=== PATIENT | male | born 1980 | race Caucasian/White ===

== ENCOUNTER 2018-09-26 13:36 | Inpatient (IN) ==
--- NOTE | 2018-09-26 08:40 | Discharge Summary ---
Orders not resulted at time of discharge: Pending orders 09/26/18 01:00 XR hip complete RT [XR] Routine Hemoglobin and Hematocrit [HEME] Routine Date of Encounter: 09/27/18 Time of Encounter: 13:00 - Discharge Diagnosis (1) Avascular necrosis of bone of right hip Priority: Primary Status: Chronic (2) Osteoarthritis of right hip Priority: Primary Status: Chronic Qualifiers: Osteoarthritis type: unspecified Qualified Code(s): M16.11 - Unilateral primary osteoarthritis, right hip (3) Status post total hip replacement, right Priority: Primary Status: Acute (4) Tobacco dependence Priority: Secondary Status: Chronic - Hospital Course Hospital course: Mr. Lou is a 38 year old male POD#1 s/p Right Total Hip Replacement robotic- assisted [Right hip avascular necrosis with arthritis] 09/26/18 - Patient seen at bedside. Patient's relative at bedside. A&Ox3 Dressing and incision c/d/i No calf tenderness, erythema, or warmth. Neurovascularly intact b/l LE. Labwork, vitals, and medications reviewed. Pain control: Adequate Participating in therapy. All questions and concerns addressed. Educated on use of incentive spirometer, ambulation, and hydration. Patient educated on post-operative restrictions and care. Addressed: see above. Patient course and disposition discussed with Dr. Cao D/C plan: Home with home health today. Outpatient follow up arranged. - Time Spent with Patient Total time spent providing and/or coordinating discharge services: - Discharge Medications Prescriptions: New Aspirin Enteric Coated [Aspirin EC] 325 mg PO BID 10 Days #20 tablet. Docusate Sodium [Colace] 100 mg PO BID 5 Days #10 capsule OxyCODONE Immed Rel [Roxicodone 5 MG] 5 mg PO Q6HR PRN 5 Days #20 tablet PRN Reason: Severe Pain Cyclobenzaprine HCl 10 mg PO TID 7 Days #21 tablet Naproxen [Naprosyn] 500 mg PO BIDWM 14 Days #28 tablet Gabapentin [Neurontin] 300 mg PO TID 14 Days #42 capsule Continued Acetaminophen [Tylenol] 1,000 mg PO Q6HR PRN PRN Reason: Mild To Moderate Pain Home Medications: Acetaminophen [Tylenol] 1,000 mg PO Q6HR PRN 09/26/18 [History] Aspirin Enteric Coated [Aspirin EC] 325 mg PO BID 10 Days #20 tablet. 09/26/18 [Rx] Docusate Sodium [Colace] 100 mg PO BID 5 Days #10 capsule 09/26/18 [Rx] OxyCODONE Immed Rel [Roxicodone 5 MG] 5 mg PO Q6HR PRN 5 Days #20 tablet 09/26/18 [Rx] Cyclobenzaprine HCl 10 mg PO TID 7 Days #21 tablet 09/27/18 [Rx] Gabapentin [Neurontin] 300 mg PO TID 14 Days #42 capsule 09/27/18 [Rx] Naproxen [Naprosyn] 500 mg PO BIDWM 14 Days #28 tablet 09/27/18 [Rx] Allergies/Adverse Reactions: Allergy/AdvReac Type Severity Reaction Status Date / Time No Known Allergies Allergy Verified 09/26/18 13:57 Date of admission: 09/26/18 Primary care physician: Jonathan Kaba DO Discharging clinician: Munir Cao Anticipated date of discharge: 09/27/18 - VTE Documentation of Mechanical Device: Venous foot pump, device - Patient Status Disposition: Home Health Service Condition: Good Functional capacity at discharge: uses cane/walker Overall status at discharge: patient is progressing back to baseline - Discharge Instructions Follow Up With: Jonathan Kaba DO [Primary Care Provider] - - Diet and Activity Activity: as per physical therapy Diet: advance to your usual diet
--- NOTE | 2018-09-26 12:07 | Anesthesia Evaluation PreOp ---
Date of Encounter: 09/26/18 Time of Encounter: 14:32 - Past History Planned Operation: Right Total Hip Arthroplasty Cardiac History: Denies any Significant Hx Pulmonary History: Smoker (19 years), Snore ENTRY PROCESSOR History: Denies Any Significant HX Other Medical History: GERD Anesthesia History: No Prior Anesthetic Complications, Past Anesthesia Alcohol Use: occasionally Drug use: none Medications and Allergies Acetaminophen [Tylenol] 1,000 mg PO Q6HR PRN 09/26/18 [History] Aspirin Enteric Coated [Aspirin EC] 325 mg PO BID 10 Days #20 tablet. 09/26/18 [Rx] Docusate Sodium [Colace] 100 mg PO BID 5 Days #10 capsule 09/26/18 [Rx] OxyCODONE Immed Rel [Roxicodone 5 MG] 5 mg PO Q6HR PRN 5 Days #20 tablet 09/26/18 [Rx] Allergy/AdvReac Type Severity Reaction Status Date / Time No Known Allergies Allergy Verified 09/26/18 13:57 - Meds/Allergy Pre-op Review Medications Reviewed: Yes Allergies Reviewed: Yes Beta Blockers on Current Med List: No Anesthesia Results - Labs Laboratory Tests 09/06/18 09/06/18 09/06/18 09:37 09:37 09:37 WBC 11.6 H Hgb 13.2 Hct 40.2 Plt Count 417 H PT 11.2 INR 1.0 APTT 30.8 Sodium 136 Potassium 3.9 BUN 10 Creatinine 0.68 L - Imaging EKG: report reviewed (09/09/2018 SINUS RHYTHM WITH SINUS ARRHYTHMIA) Anesthesia Exam O2 Sat Height 1.75 m Height 1.75 m Weight 90.265 kg Weight 90.265 kg O2 Sat by Pulse Oximetry 95 O2 Sat by Pulse Oximetry 95 Vital Signs Temp Pulse Resp BP Pulse Ox 99.0 F 96 18 120/75 95 09/26/18 13:46 09/26/18 13:46 09/26/18 13:46 09/26/18 13:46 09/26/18 13:46 Height: 5'9'' Weight: 199 lbs NPO (# of Hours): 8 Pain Scale: 0 Pain Scale Used: Numeric (1 - 10) - HEENT Pupil (Motor): EOMI Mallampati: III Teeth: Normal Oral Opening: Greater than 3 - ENTRY PROCESSOR LOC: Oriented ENTRY PROCESSOR Motor: Normal RUE, Normal LUE, Normal RLE, Normal LLE, Normal Face ENTRY PROCESSOR Sensory: Normal: RUE, LUE, RLE, LLE, Face - Cardiac Rhythm: Regular Murmur: None - Pulmonary Breath Sounds: bilateral Clear Respiratory Effort: Symmetrical Anesthesia Assess/Plan ASA Score: 2 Level of consciousness: Cooperative, Oriented, Tranquil Anesthetic Plan: MAC, Spinal Monitoring Plan: Standard Monitors Recovery Plan: PACU
[2018-09-26] MEDS ORDERED: Albuterol 2.5 MG/3 ML NEBULIZER IH ONE (13:53)
[2018-09-26] MEDS ORDERED: CeFAZolin Syr 2,000MG/20 ML 2,000 MG/20 ML SYRINGE IVPB ONE (13:53)
[2018-09-26] MEDS ORDERED: *HR* FentaNYL (PF) 100 MCG/2 ML VIAL ONE (13:55)
[2018-09-26] MEDS ORDERED: *HR* Midazolam HCl 2 MG/2 ML VIAL ONE (13:55)
[2018-09-26] MEDS ORDERED: Propofol 500 MG/50 ML INFUS..BTL ONE ×2 (13:56→15:54)
--- NOTE | 2018-09-26 13:57 | History & Physical Report ---
Date of Encounter: 09/26/18 Time of Encounter: 13:57 24 Hour HP Update - Instructions Instructions: If the History and Physical is less than 30 days old and was completed prior to A.M. admission and or procedure and has NOT been updated on calendar day of procedure please complete this update prior to performing procedure. - Update Patient reports changes in Medical Condition: No Changes in examination, assessment, or condition: No Changes in Medication: No Preop tests/diagnostics Reviewed: Yes Surgery Remains Indicated: Yes Consent for Planned Operative Procedure(s) Verified: Yes - Pre-Operative Checklist Preoperative Checklist Indicated: No Prophylactic Antibiotic Ordered: Yes Is VTE Prophylaxis Indicated?: Yes
[2018-09-26] MEDS ORDERED: Ringers Solution, Lactated 1,000 ML IVC SCH ×2 (14:00→17:57)
[2018-09-26] MEDS ORDERED: Gabapentin 300 MG CAPSULE PO ONE (14:34)
[2018-09-26] MEDS ORDERED: Celecoxib 200 MG CAPSULE PO ONE ×2 (14:34→14:42)
[2018-09-26] MEDS ORDERED: Ondansetron 4 MG/2 ML VIAL IVP ONE (14:35)
[2018-09-26] MEDS ORDERED: *HR* Promethazine 25 MG/ML VIAL IVP PRN ×2 (14:35→17:57)
[2018-09-26] MEDS ORDERED: *HR* OxyCODONE ER (12 HR) 10 MG TABLET PO ONE ×2 (14:35→14:42)
[2018-09-26] MEDS ORDERED: Lidocaine -MPF 1% 5 ML AMPUL ONE (14:39)
[2018-09-26] MEDS ORDERED: Gabapentin 300 MG CAPSULE ONE (14:42)
[2018-09-26] MEDS ORDERED: Ethanol\\Acetic Acid\\Na Ace\\Ben 1,000 ML IRRIG.SOLN IR ONE (14:58)
[2018-09-26] MEDS ORDERED: Tranexamic Acid 1,000 MG/10 ML VIAL ONE (15:08)
--- NOTE | 2018-09-26 15:45 | Anesthesia Procedures ---
Date of Encounter: 09/26/18 Time of Encounter: 14:45 Procedures: Anesthesia - Epidural/Spinal Consent Obtained: Yes Supplemental Oxygen: Nasal Cannula Supplemental Oxygen Rate (L/min): 3 Sedation: Versed (mg): 2 Sedation: Fentanyl (mcg): 100 Site Prep: 0.5% Chlorhexidine/Alcohol Patient position: left lateral decubitus Local Anesthetic: Lidocaine 1% Interspace Used: L3-L4 Blood: No CSF: Yes Paresthesia: No Spinal Needle Gauge: 25 Spinal Dose: 2.5ml 0,5% marcaine
--- NOTE | 2018-09-26 16:22 | Orthopedic Operative Note ---
Date of procedure: 09/26/18 Pre-op diagnosis: Right hip avascular necrosis with arthritis Post-op diagnosis: same Procedure: Procedure: Right Total Hip Replacment robotic-assisted Estimated blood loss: 200 cc Hardware: Metal and polyethylene replacement. Prachi DM Cup: 56 cup Femoral 6 anteverted Anato size stem Head: 0 head with Araceli Procedural Notes: Grade 4 arthritic changes femoral head acetabular socket, procedure performed with robotic assistance. Leg length difference 0 as measured by preoperative CT scan. Operative procedure: The patient was brought to the operating room and placed on the operating room table. After general anesthesia was administered the patient was placed in the lateral decubitus position with the operative leg up. All pressure points were padded appropriately and the head was stabilized in the neutral position. The operative extremity was prepped and draped in the sterile surgical fashion patient received IV antibiotic prior to skin incision. 3 Steinmann pins were placed in the iliac crest 3 cm proximal to the anterior superior iliac spine this was for the robotic-assisted sensor. This was done through a small 2 cm incision. A standard posterior approach is made to the operative hip, the incision was made through the skin and subcutaneous tissue hemostasis was obtained with Bovie cautery. Using careful sharp dissection the fascia was identified and incised exposing the external rotators. The greater trochanter was marked, and length was measured at this time utilizing robotic assistance. The external rotators were released off the greater trochanter and tagged with #2 FiberWire suture. The capsule was T'd open and the hip was brought into internal rotation. Patient noted to have grade 4 arthritic changes femoral head. The femoral neck cut was made at the appropriate level [id number] mm proximal to the lesser trochanter aced on preoperative templating. An anterior capsulotomy was performed for the anterior retractor. Soft tissues removed from the acetabulum. Patient noted to have grade 4 arthritic changes acetabulum. The acetabulum reference point was confirmed. The acetabulum was then mapped with robotic assistance. Based on the preoperative plan the acetabulum was reamed in one step with a 56 reamer. The 56 acetabulum was impacted with robotic assistance and 40 degrees of abduction and 25 degrees of anteversion. The hip was brought back in to internal rotation and prepared with the icebox man followed by the canal finder followed by the reaming process to a size 13 broaching process in 20 degrees anteversion. It was broached up to the appropriate size 6 Trial reduction revealed leg lengths close to normal. The femoral implant was impacted in place in 20 degrees of anteversion. Trial reduction found the hip to be stable with 0 head and Araceli. The trials were removed and the real implants were impacted in place. The hip was reduced, patient had robotic confirmed leg length of 10 mm longer than the contralateral side. The hip had excellent stability with forward flexion to 90 degrees adduction of 30 degrees and internal rotation of 60 degrees. The hip had no shuck. The hip sat with an antibacterial solution. It was irrigated out with 2 L of pulse irrigation. The Steinmann pins were removed. The hip was closed by the PA. The deep tissue was irrigated and closed deep with #1 PDS suture superficially with 0 PDS suture and skin was closed with Dermabond and zip tie. The patient was placed in a sterile dressing and abduction pillow. The patient was extubated and transferred to the recovery room in stable condition. Anesthesia: spinal Surgeon: Munir Cao Was there an conventions assistant present: No Estimated blood loss (cc): 200 Condition: stable Disposition: PACU
[2018-09-26] MEDS ORDERED: *HR* Propofol 200 MG/20 ML VIAL IVP ONE (16:35)
[2018-09-26] MEDS: *HR* HYDROmorphone (PF) 1 MG/ML SYRINGE IVP PRN ×2 (17:00→17:06)
[2018-09-26] MEDS ORDERED: *HR* OxyCODONE Immed Rel 5 MG TABLET PO ONE (17:34)
[2018-09-26 17:39] LABS: Hematocrit 38.3 % (37.5-50.1); Hemoglobin 12.4 g/dL (12.9-16.9)
[2018-09-26] MEDS ORDERED: Sennosides 8.6 MG TABLET PO PRN (17:57)
[2018-09-26] MEDS ORDERED: Ondansetron 4 MG/2 ML VIAL IVP PRN (17:57)
[2018-09-26] MEDS ORDERED: Temazepam 15 MG CAPSULE PO PRN (17:57)
[2018-09-26] MEDS ORDERED: Naloxone 0.4 MG/ML INJ IVP PRN (17:57)
[2018-09-26] MEDS ORDERED: MOM Conc 10 ML UD.LIQ PO PRN (17:57)
[2018-09-26] MEDS ORDERED: traMADol 50 MG TABLET PO PRN (17:57)
[2018-09-26] MEDS ORDERED: *HR* Enoxaparin 30 MG/0.3 ML SYRINGE SQ SCH (18:00)
--- NOTE | 2018-09-26 18:22 | Anesthesia Evaluation Post Op ---
Date of Encounter: 09/26/18 Time of Encounter: 17:54 - Vital Signs Vital Signs: Vital Signs/O2 Sat, Most Current Temp Pulse Resp BP Pulse Ox 98.0 F 79 16 124/75 96 09/26/18 18:10 09/26/18 18:10 09/26/18 18:10 09/26/18 18:10 09/26/18 18:10 - Lungs Lungs: Clear Ascult./Percussion - Airway Airway: Non-obstructed - Cardiovascular Regular Rate - Mental Status Mental Status: Alert & Oriented, Answers Appropriately - Pain Pain Scale used: Numeric (1 - 10) (tolerable) - Nausea Vomiting Nausea Vomiting: Not Present - Hydration Hydration: Ice chips - Discharge PostOp Status: Transfer Patient to floor
[2018-09-26] MEDS: Gabapentin 300 MG CAPSULE PO SCH ×2 (20:19→20:24)
[2018-09-26] MEDS: *HR* OxyCODONE Immed Rel 5 MG TABLET PO PRN (20:24)
[2018-09-26] MEDS: Ascorbic Acid 500 MG TABLET PO SCH (20:24)
[2018-09-26] MEDS: *HR* Enoxaparin 30 MG/0.3 ML SYRINGE SQ SCH (20:24)
[2018-09-26] MEDS: HYDROcodone BIT/Homatropine 5 MG TABLET PO PRN (22:16)
[2018-09-27] MEDS: *HR* OxyCODONE Immed Rel 5 MG TABLET PO PRN ×4 (00:34→14:21)
[2018-09-27] MEDS: HYDROcodone BIT/Homatropine 5 MG TABLET PO PRN ×2 (03:36→07:31)
[2018-09-27] MEDS: *HR* Enoxaparin 30 MG/0.3 ML SYRINGE SQ SCH (05:47)
[2018-09-27] MEDS ORDERED: Ketorolac 30 MG/ML VIAL IVP PRN (06:23)
[2018-09-27] MEDS ORDERED: Acetaminophen IV 1,000 MG/100 ML INFUS..BTL IVPB PRN (06:24)
--- NOTE | 2018-09-27 06:24 | Orthopedics Progress Note ---
Date of Encounter: 09/27/18 Time of Encounter: 06:24 Subjective Interval history: Patient was seen this morning doing well without complaints. Afebrile vital signs stable. Operative extremity: Neurovascularly intact Dressing clean dry and intact Calves nontender Assessment and plan: Continue with postoperative care Objective Vital signs: Vital Signs Temp Pulse Resp BP Pulse Ox 09/27/18 03:27 99.0 F 92 18 106/75 97 09/27/18 00:09 98.2 F 86 18 109/71 96 09/26/18 18:10 98.0 F 79 16 124/75 96 09/26/18 17:45 97.5 F L 66 18 115/75 93 09/26/18 17:35 59 15 127/82 91 09/26/18 17:25 97.5 F L 60 14 129/86 91 09/26/18 17:15 65 15 131/88 93 09/26/18 17:05 77 13 128/96 97 09/26/18 16:55 96.9 F L 82 16 125/77 99 09/26/18 15:09 78 16 121/83 95 09/26/18 14:54 64 16 151/89 95 09/26/18 14:12 99.0 F 96 18 120/75 95 09/26/18 13:46 99.0 F 96 18 120/75 95 Intake and Output 09/26/18 09/26/18 09/27/18 15:59 23:59 07:59 Intake Total 350 / 350 700 / 700 Output Total 200 / 200 0 / 0 Balance 150 / 150 700 / 700 Intake: Oral 350 / 350 700 / 700 Output: Urine 0 / 0 0 / 0 Estimated Blood Loss 200 / 200 Other: # Voids 1 Weight 90.265 kg 90.11 kg Blood Glucose* 117 Patient Weight 09/27/18 23:59 Weight 90.11 kg - Labs CBC & BMP: 09/26/18 17:22 Labs: Abnormal lab results Hgb 12.4 g/dL (12.9-16.9) L 09/26/18 17:22 Consult Discharge Plan - Plan Referrals: Jonathan Kaba DO [Primary Care Provider] -
[2018-09-27] MEDS: Ascorbic Acid 500 MG TABLET PO SCH ×3 (07:29→16:12)
[2018-09-27] MEDS: Gabapentin 300 MG CAPSULE PO SCH ×3 (07:30→16:11)
[2018-09-27] MEDS ORDERED: Multivit/Ca/Min/Fe/FA 1 TAB TABLET PO SCH (09:00)
[2018-09-27 10:28] LABS: Basophils % 0.3 %; Eosinophils # 0.1 K/mcL (0.0-0.6); Eosinophils % 0.7 %; Hematocrit 30.5 % (37.5-50.1); Immature Granulocytes % 0.5 % (0-4); Lymphocytes # 2.7 K/mcL (0.6-4.6); Lymphocytes % 17.4 %; Mean Corpuscular HGB Conc 32.5 g/dL (31.6-35.5); Mean Corpuscular Hemoglobin 29.7 pg (28.0-33.3); Mean Corpuscular Volume 91.6 fL (83.0-100.0); Mean Platelet Volume 10.7 fL (9.4-12.4); Monocytes # 1.5 K/mcL (0.0-1.3); Monocytes % 9.9 %; Neutrophils # 10.9 K/mcL (1.6-8.9); Platelet Count 277 K/mcL (140-400); Red Blood Count 3.33 M/mcL (4.19-5.50); Red Cell Distribution Width 14.3 % (11.5-14.5); Segmented Neutrophils % 71.2 %; White Blood Count 15.2 K/mcL (4.3-11.1)
[2018-09-27 10:31] LABS: Hemoglobin 9.9 g/dL (12.9-16.9)
[2018-09-27 10:47] LABS: BUN/Creatinine Ratio 16 (6-26); Blood Urea Nitrogen 14 mg/dL (6-20); Calcium 9.1 mg/dL (8.6-10.3); Carbon Dioxide 26 mEq/L (23-29); Chloride 99 mEq/L (98-107); Glucose 158 mg/dL (70-105); Osmolality,Calculated 276 (280-300); Potassium 3.9 mEq/L (3.5-5.1); Sodium 131 mEq/L (136-145); eGFR For African Americans > 60 (> 60); eGFR For Non-African Americans > 60 (> 60)
[2018-09-27 15:58] VITALS: BP 133/71
--- NOTE | 2018-09-27 16:15 | Physician Discharge Referral ---
Home Health/Hosp Referral Info Transfer to: Home Health Attending Provider: Dr. Munir Cao - Diagnosis (1) Avascular necrosis of bone of right hip Priority: Primary Status: Chronic (2) Osteoarthritis of right hip Priority: Primary Status: Chronic (3) Status post total hip replacement, right Priority: Primary Status: Acute (4) Tobacco dependence Priority: Secondary Status: Chronic - Respiratory Orders Smoking Cessation: Smoking cessation has been advised. For more information, call the [place] Tobacco Quit Line at 6-265-WWUA-NOW. - Dressing/Wound Care Site: right hip Type of Dressing/Treatments w/Frequency: Opsite placed. Keep dressing intact until first follow up appointment. If greater than 50% saturated, notify office, remove dressing and place appropriate dressing back in place. Leave Zipline intact. Opsite dressing is water resistant, not water-proof. OK to shower, but do not get dressing wet. - Diet/Nutrition Diet/Nutrition Orders: Regular - Activity Activity Orders: Up ad clarke, Ambulate, Chair, Walker - Services Needed Following services are medically necessary services: Nursing, Home Health Aide, Physical Therapy, Occupational Therapy, Med Social Work Home Care Orders: Total Hip replacement Precautions Apply cold therapy 3-6x/day for 20 minutes at a time. Encourage ambulation throughout the day and incentive spirometer 10x/hour. Elevate affected extremity as tolerated. Brace: Wear hip abduction pillow when laying/sleeping - Transfer Medications Prescriptions: Cyclobenzaprine HCl 10 mg PO TID 7 Days #21 tablet Naproxen [Naprosyn] 500 mg PO BIDWM 14 Days #28 tablet Gabapentin [Neurontin] 300 mg PO TID 14 Days #42 capsule Home Medications: Acetaminophen [Tylenol] 1,000 mg PO Q6HR PRN 09/26/18 [History] Aspirin Enteric Coated [Aspirin EC] 325 mg PO BID 10 Days #20 tablet. 09/26/18 [Rx] Docusate Sodium [Colace] 100 mg PO BID 5 Days #10 capsule 09/26/18 [Rx] OxyCODONE Immed Rel [Roxicodone 5 MG] 5 mg PO Q6HR PRN 5 Days #20 tablet 09/26/18 [Rx] Cyclobenzaprine HCl 10 mg PO TID 7 Days #21 tablet 09/27/18 [Rx] Gabapentin [Neurontin] 300 mg PO TID 14 Days #42 capsule 09/27/18 [Rx] Naproxen [Naprosyn] 500 mg PO BIDWM 14 Days #28 tablet 09/27/18 [Rx] Allergies/Adverse Reactions: Allergy/AdvReac Type Severity Reaction Status Date / Time No Known Allergies Allergy Verified 09/26/18 13:57 Certification: Further, I certify that my clinical findings support that this patient is homebound (i.e. absences from home require considerable and taxing effort and are for medical reasons or anabaptism services or infrequently or short duration when for other reasons) because: Homebound Reason: Post-surgery restriction and or conditions limit ability to leave home Attestation: My signature below is to certify that this patient is under my care and that I, or nurse practitioner, or a physician retail sales assistant working with me, has a [id number] encounter with this patient.
== END 2018-09-27 17:32 | disposition home health service (06) | DRG 301 ==
LOC: SAMDAY 13:36 → 3NENU 18:17
PROVIDERS: ADMIT Orthopaedic Surgery; ATTEND Orthopaedic Surgery